=== PATIENT | male | born 1985 | race Caucasian/White ===

== ENCOUNTER 2018-01-12 17:35 | Outpatient (CLI) | payer SELFPAY | END 2018-01-12 17:36 | disposition EMS.NT | LOC: EMS 17:35 | PROVIDERS: ATTEND Surgery | DX: R29.898 Other symptoms and signs involving the musculoskeletal system (principal); V43.62XA Car passenger injured in collision with other type car in traffic accident, initial encounter; Y92.410 Unspecified street and highway as the place of occurrence of the external cause ==

== ENCOUNTER 2018-07-13 21:23 | Outpatient (CLI) | payer OTHER | END 2018-07-13 21:24 | disposition critical access hospital (66) | LOC: EMS 21:23 | PROVIDERS: ATTEND Surgery | DX: M79.661 Pain in right lower leg (principal); M54.5 Low back pain; Y35.891A Legal intervention involving other specified means, law enforcement official injured, initial encounter; Y92.481 Parking lot as the place of occurrence of the external cause; Y99.0 Civilian activity done for income or pay | CPT/HCPCS: A0425; A0429 ==

== ENCOUNTER 2018-07-13 23:37 | Emergency (ER) | payer OTHER ==
[2018-07-13 23:43] VITALS: BP 143/126
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
[2018-07-13] MEDS ORDERED: MELOXICAM 7.5 MG TABLET PO STA (23:57)
== END 2018-07-14 00:05 | disposition home or self-care (01) ==
LOC: EDUNIT# → ED 23:37
DX: S39.012A Strain of muscle, fascia and tendon of lower back, initial encounter (principal); S90.31XA Contusion of right foot, initial encounter; V09.20XA Pedestrian injured in traffic accident involving unspecified motor vehicles, initial encounter; Y99.0 Civilian activity done for income or pay
CPT/HCPCS: 1040M; 99283; A9270

== ENCOUNTER 2023-02-27 11:00 | Outpatient (CLI) | payer BC ==
--- NOTE | 2023-02-27 15:35 | XRAY Report ---
PROCEDURE: Thoracic Spine 2 View INDICATIONS: THORACIC PAIN. TECHNIQUE: 2 views of the thoracic spine were acquired. COMPARISON: None. FINDINGS: Bones: No fractures or dislocations. No suspicious bony lesions. 12 pairs of ribs are noted, and a ppear intact where visualized. Soft tissues: No paravertebral stripe thickening. IMPRESSION: No visualized acute fracture or dislocation. However, occult injury cannot be excluded. Recommend fernandez rt interval imaging follow-up in 7-10 days as clinically indicated for additional evaluation. Reviewed by: Desire Guaman MD on 02/27/2023 3:34 PM PDT Approved by: Desire Guaman MD on 02/27/2023 3:34 PM PDT Station ID: [id number]
== END 2023-02-27 11:15 | disposition home or self-care (01) ==
LOC: DI.N 11:00
PROVIDERS: ATTEND Family Medicine
DX: M54.6 Pain in thoracic spine (principal)

== ENCOUNTER 2023-05-26 09:50 | Outpatient (CLI) | payer BC ==
[2023-05-26 10:03] LABS: BASOPHILS % (AUTO) 0.6 %; EOSINOPHILS # (AUTO) 0.1 10^3/uL (0.0-0.7); HGB - HEMOGLOBIN 15.7 g/dL (14.0-18.0); LYMPHOCYTES # (AUTO) 1.6 10^3/uL (1.5-3.5); LYMPHOCYTES % (AUTO) 31.9 %; MEAN CORPUSCULAR HEMOGLOBIN 29.6 pg (27.0-31.0); MEAN CORPUSCULAR HGB CONC 34.9 g/dL (32.0-36.0); MEAN CORPUSCULAR VOLUME 84.9 fL (80.0-94.0); MEAN PLATELET VOLUME 9.7 fL (7.4-11.4); MONOCYTES # (AUTO) 0.5 10^3/uL (0.0-1.0); MONOCYTES % (AUTO) 9.7 %; NEUTROPHILS # (AUTO) 2.8 10^3/uL (1.5-6.6); NEUTROPHILS % (AUTO) 55.6 %; PLT - PLATELET COUNT 223 10^3/uL (130-450); RED CELL DISTRIBUTION WIDTH 12.4 % (12.0-15.0)
[2023-05-26 10:22] LABS: ALBUMIN 4.7 g/dL (3.2-5.5); ALBUMIN/GLOBULIN RATIO 1.9 (1.0-2.2); ALKALINE PHOSPHATASE 89 IU/L (42-121); ALT ALANINE AMINOTRANSFERASE 29 IU/L (10-60); AST ASPARTATE AMINOTRANSFERASE 17 IU/L (10-42); BILIRUBIN,TOTAL 0.9 mg/dL (0.2-1.0); BUN - BLOOD UREA NITROGEN 13 mg/dL (6-20); CALCIUM 9.7 mg/dL (8.5-10.3); CARBON DIOXIDE - CO2 27 mmol/L (21-32); CHLORIDE 106 mmol/L (101-111); CHOL/HDL RATIO 3.3 (<5.0); CHOLESTEROL 172 mg/dL; CK- CREATINE KINASE 87 IU/L (30-223); CREATININE 0.9 mg/dL (0.6-1.3); GFR - MDRD 96 (>89); GLUCOSE 104 mg/dL (74-104); HDL CHOLESTEROL 52 mg/dL; LDL CHOLESTEROL,CALCULATED 89 mg/dL; LDL/HDL RATIO 1.7 (<3.6); POTASSIUM 4.1 mmol/L (3.5-4.5); SODIUM 139 mmol/L (135-145); TOTAL PROTEIN 7.2 g/dL (6.4-8.9); TRIGLYCERIDES 156 mg/dL (48-352); VLDL CHOLESTEROL 31 mg/dL
[2023-05-26 10:31] LABS: THYROID STIMULATING HORMONE 1.49 uIU/mL (0.34-5.60)
[2023-05-26 10:33] LABS: BILIRUBIN,URINE NEGATIVE (NEGATIVE); GLUCOSE, URINE (UA) NEGATIVE (NEGATIVE); KETONES,URINE (UA) NEGATIVE (NEGATIVE); LEUKOCYTE ESTERASE, URINE NEGATIVE (NEGATIVE); NITRITE,URINE NEGATIVE (NEGATIVE); OCCULT BLOOD,URINE TRACE-INTA (NEGATIVE); PH,URINE 5.5 PH (5.0-7.5); PROTEIN,URINE NEGATIVE (NEGATIVE); UROBILINOGEN,URINE 0.2 (NORMAL) E.U./dL (NORMAL)
[2023-05-26 10:39] LABS: BACTERIA,URINE Rare /HPF (None Seen); CLARITY,URINE CLEAR (CLEAR); RBC,URINE None Seen /HPF (0-5); SQUAMOUS EPITHELIAL CELL,UR NONE SEEN (<= Few); WBC,URINE 0-3 /HPF (0-3)
[2023-05-27 19:07] LABS: ANTINUCLEAR ANTIBODIES IFA Negative (.)
== END 2023-05-26 09:51 | disposition home or self-care (01) ==
LOC: LAB 09:50
PROVIDERS: ATTEND Physician Assistant
DX: M62.89 Other specified disorders of muscle (principal); Z13.220 Encounter for screening for lipoid disorders
CPT/HCPCS: 36415; 80053; 80061; 81001; 82550; 83721; 84443; 85025; 86038; 87086

== ENCOUNTER 2024-03-02 14:13 | Outpatient (CLI) | payer BC ==
[2024-03-02 23:07] LABS: CHLAMYDIA TRACHOMATIS DNA NEGATIVE (NEGATIVE); NEISSERIA GONORRHOEAE DNA NEGATIVE (NEGATIVE); TRICHOMONAS VAGINALIS DNA NEGATIVE (NEGATIVE)
[2024-03-03 03:11] LABS: HIV SCREEN 4TH GENERATION Non Reactive (Non Reactive)
[2024-03-03 07:10] LABS: RPR Non Reactive (Non Reactive)
[2024-03-03 08:10] LABS: HSV 2 IGG TYPE SPEC <0.91 index (0.00-0.90)
== END 2024-03-02 14:14 | disposition home or self-care (01) ==
LOC: LAB 14:13
PROVIDERS: ATTEND Physician Assistant
DX: Z11.3 Encounter for screening for infections with a predominantly sexual mode of transmission (principal)
CPT/HCPCS: 36415; 86592; 86695; 86696; 86803; 87389; 87491; 87591; 87661